=== PATIENT | female | born 1985 | race Caucasian/White ===

== ENCOUNTER 2020-10-09 15:57 | Emergency (ER) | payer OTHER ==
[~2020-10-09 15:57] MED LIST: CYMBALTA 30MG C30 MG PO; FIORICET1 EACH PO; LIPITOR40 MG PO; NEURONTIN300 MG PO; PERCOCET 5-3251 EACH PO; TOPROL XL 50 MG50 MG PO
[2020-10-09] MEDS ORDERED: FIORICET1 EACH PO ×2 (17:15→17:16)
[2020-10-09] MEDS ORDERED: CYCLOBENZAPRINE10 MG PO (17:15)
[2020-10-09] MEDS ORDERED: MEDROL 4MG DOSEP4 MG PO (17:15)
[2020-10-09] MEDS ORDERED: ZOFRAN4 M1 PO (17:57)
[2020-10-10] MEDS ORDERED: METFORMIN HCL500 M3 PO (15:33)
[2020-10-16] MEDS ORDERED: VENTOLIN HFA IN18 GM INH (08:38)
== END 2020-10-09 17:52 | disposition home or self-care (01) ==
LOC: FER 15:57
DX: G43.909 Migraine, unspecified, not intractable, without status migrainosus (principal); E11.9 Type 2 diabetes mellitus without complications; Z88.1 Allergy status to other antibiotic agents; Z88.2 Allergy status to sulfonamides; Z88.8 Allergy status to other drugs, medicaments and biological substances
CPT/HCPCS: 96372; 99283; J1100; J1885

== ENCOUNTER → 2020-10-16 | Day surgery (SDC) | payer OTHER ==
[~2020-10-16] MED LIST changes: +CYCLOBENZAPRINE10 MG PO; +MEDROL 4MG DOSEP4 MG PO; +METFORMIN HCL500 M3 PO; +MOBIC15 MG PO; +VENTOLIN HFA IN18 GM INH; +ZOFRAN4 M1 PO
[2020-10-16 08:20] LABS: HCG (URINE) SCREEN NEGATIVE (NEGATIVE)
[2020-10-16 09:35] LABS: HCT 45.4 % (37.0-47.0); HGB 14.3 g/dl (12.5-16.0); MCH 29.9 pg (25.0-31.0); MCHC 31.5 g/dL (32.0-36.0); MCV 94.8 fL (78.0-100.0); MPV 10.2 fL (6.0-9.5); RBC 4.79 M/uL (4.20-5.40); RDW 13.7 % (11.5-14.0); WBC 11.6 K/uL (4.0-10.5)
== END | disposition home or self-care (01) ==
LOC: FAS 08:02
PROVIDERS: Obstetrics & Gynecology
DX: N72 Inflammatory disease of cervix uteri (principal); J45.909 Unspecified asthma, uncomplicated; G43.909 Migraine, unspecified, not intractable, without status migrainosus; E78.00 Pure hypercholesterolemia, unspecified; K21.9 Gastro-esophageal reflux disease without esophagitis; E11.9 Type 2 diabetes mellitus without complications; I10 Essential (primary) hypertension; F17.210 Nicotine dependence, cigarettes, uncomplicated; Z88.2 Allergy status to sulfonamides; Z88.1 Allergy status to other antibiotic agents; Z88.8 Allergy status to other drugs, medicaments and biological substances; Z79.84 Long term (current) use of oral hypoglycemic drugs; Z79.899 Other long term (current) drug therapy
CPT/HCPCS: 36415; 84703; 86850; 86900; 86901; 93005; J2250; J2704; J3010; J7120

== ENCOUNTER 2021-02-17 11:33 | Emergency (ER) | payer OTHER ==
[~2021-02-17 11:33] MED LIST changes: -MOBIC15 MG PO
[2021-02-17] MEDS ORDERED: MOBIC15 MG PO (13:34)
== END 2021-02-17 14:18 | disposition home or self-care (01) ==
LOC: FER 11:33
DX: G56.01 Carpal tunnel syndrome, right upper limb (principal); E11.9 Type 2 diabetes mellitus without complications; F17.210 Nicotine dependence, cigarettes, uncomplicated; Z79.84 Long term (current) use of oral hypoglycemic drugs; Z88.1 Allergy status to other antibiotic agents; Z88.2 Allergy status to sulfonamides; Z88.8 Allergy status to other drugs, medicaments and biological substances

== ENCOUNTER 2021-05-27 20:47 | Emergency (ER) | payer OTHER ==
[~2021-05-27 20:47] MED LIST changes: +MOBIC15 MG PO
[2021-05-27 23:36] LABS: BILIRUBIN NEGATIVE (NEGATIVE); BLOOD NEGATIVE Ery/uL (NEGATIVE); CLARITY CLEAR (CLEAR); COLOR YELLOW (YELLOW); GLUCOSE (U) NORMAL (NORMAL); LEUKOCYTES 2+ Leu/uL (NEGATIVE); NITRITE NEGATIVE (NEGATIVE); PROTEIN NEGATIVE (NEGATIVE); UROBILINOGEN 0.2 mg/dL (0.2-1.0)
[2021-05-27 23:43] LABS: BACTERIA 1+
[2021-05-28 01:00] LABS: BASOPHIL 0.4 % (0-2); EOSINOPHIL 1.9 % (0-5); HCT 45.3 % (37.0-47.0); HGB 14.9 g/dl (12.5-16.0); LYMPHOCYTE 33.4 % (15-48); MCH 29.6 pg (25.0-31.0); MCHC 32.9 g/dL (32.0-36.0); MCV 90.1 fL (78.0-100.0); MONOCYTE 7.6 % (0-12); MPV 10.4 fL (6.0-9.5); NEUTROPHIL 56.4 % (41-80); NRBC 0; PLT 399 K/uL (150-400); RBC 5.03 M/uL (4.20-5.40); RDW 14.3 % (11.5-14.0); WBC 10.8 K/uL (4.0-10.5)
[2021-05-28 01:21] LABS: ALBUMIN 3.6 g/dL (3.4-5.0); BILIRUBIN - TOTAL 0.3 mg/dL (0.2-1.0); BUN/CREAT RATIO (CALC) 21.7 RATIO; CREATININE 0.83 mg/dL (0.51-0.95); GLOBULIN (CALCULATION) 3.3 g/dL; POTASSIUM 4.7 mmol/L (3.5-5.1); TOTAL PROTEIN 6.9 g/dL (6.4-8.2)
[2021-05-28] MEDS ORDERED: MACROBID100 MG PO (03:55)
== END 2021-05-28 04:09 | disposition home or self-care (01) ==
LOC: FER 20:47
PROVIDERS: Emergency Medicine Emergency Medical Services
DX: N39.0 Urinary tract infection, site not specified (principal); N83.202 Unspecified ovarian cyst, left side; I10 Essential (primary) hypertension; E11.9 Type 2 diabetes mellitus without complications; F17.200 Nicotine dependence, unspecified, uncomplicated; Z90.721 Acquired absence of ovaries, unilateral; Z88.2 Allergy status to sulfonamides; Z88.1 Allergy status to other antibiotic agents; Z88.8 Allergy status to other drugs, medicaments and biological substances
CPT/HCPCS: 36415; 80053; 81001; 83690; 84145; 85025; 87088; J1170; J2405; Q9967

== ENCOUNTER 2022-04-15 17:45 | Emergency (ER) | payer OTHER ==
[~2022-04-15 17:45] MED LIST changes: +CLINDAMYCIN 15150 MG PO; +MACROBID100 MG PO; +NORCO 5-325 TA1 EACH PO
[2022-04-15] MEDS ORDERED: VIBRAMYCIN100 MG PO (21:29)
[2022-04-15] MEDS ORDERED: HIBICLENS118 ML TOP (21:29)
[2022-04-15] MEDS ORDERED: NORCO 5-325 TA1 EACH PO (21:29)
== END 2022-04-15 21:50 | disposition home or self-care (01) ==
LOC: FER 17:45
DX: L02.416 Cutaneous abscess of left lower limb (principal); L02.214 Cutaneous abscess of groin; E11.9 Type 2 diabetes mellitus without complications; F17.210 Nicotine dependence, cigarettes, uncomplicated; Z88.2 Allergy status to sulfonamides; Z88.1 Allergy status to other antibiotic agents; Z88.8 Allergy status to other drugs, medicaments and biological substances; Z79.899 Other long term (current) drug therapy; Z28.310 Unvaccinated for COVID-19
CPT/HCPCS: 96372; J1170

== ENCOUNTER 2022-04-24 16:48 | Emergency (ER) | payer OTHER ==
[~2022-04-24 16:48] MED LIST changes: +HIBICLENS118 ML TOP; +VIBRAMYCIN100 MG PO
[2022-04-24] MEDS ORDERED: NORCO 5-325 TA1 EACH PO (19:20)
[2022-04-24] MEDS ORDERED: VIBRAMYCIN100 MG PO (19:20)
== END 2022-04-24 20:14 | disposition home or self-care (01) ==
LOC: FER 16:48
DX: N76.4 Abscess of vulva (principal); J45.909 Unspecified asthma, uncomplicated; F17.210 Nicotine dependence, cigarettes, uncomplicated; Z28.310 Unvaccinated for COVID-19; Z88.1 Allergy status to other antibiotic agents
CPT/HCPCS: 87070; 87205